=== PATIENT | male | born 1980 | race Caucasian/White ===

== ENCOUNTER → 2018-02-05 | Outpatient (CLI) | payer BC | LOC: COL.RAD 12:00 | DX: N50.3 Cyst of epididymis (principal); N43.3 Hydrocele, unspecified; N50.9 Disorder of male genital organs, unspecified ==

== ENCOUNTER 2020-08-05 00:54 | Emergency (ER) | payer OTHER ==
[~2020-08-05] VITALS: Ht 180.3 cm; Wt 93.2 kg
[2020-08-05] MEDS ORDERED: NORCO 325 MG-51 TAB PO (01:28)
[2020-08-05] MEDS ORDERED: VALIUM 5MG T5 MG/TAB PO (01:28)
[2020-08-05 02:25] VITALS: BP 135/91; PULSE 77; TEMP 97
== END 2020-08-05 02:25 | disposition home or self-care (01) ==
LOC: COL.ER 00:54
DX: M54.5 Low back pain (principal); M25.551 Pain in right hip; M79.604 Pain in right leg
CPT/HCPCS: J1100; J2060; J3010